=== PATIENT | male | born 1950 ===

== ENCOUNTER 2018-01-08 11:29 | Emergency (ER) | payer OTHER ==
[~2018-01-08] VITALS: Ht 172.7 cm; Wt 101.8 kg
[2018-01-08 11:56] VITALS: BP 178/75; PULSE 88; RESP 18; TEMP 97.8; O2SAT 93; O2SAT 95
[2018-01-08 12:11] LABS: AUTOMATED NEUTROPHIL # 5.1 TH/MM3 (1.8-7.7); BASOPHIL % 0.5 % (0.0-2.0); EOSINOPHIL # 0.3 TH/MM3 (0-0.4); EOSINOPHIL % 4.5 % (0.0-4.0); HEMATOCRIT 47.2 % (39.0-51.0); HEMOGLOBIN 16.5 GM/DL (13.0-17.0); LYMPH % 18.3 % (9.0-44.0); LYMPHOCYTE # 1.4 TH/MM3 (1.0-4.8); MEAN CELL VOLUME 101.7 FL (80.0-100.0); MEAN CORPUSCULAR HEMOGLOBIN 35.5 PG (27.0-34.0); MEAN CORPUSCULAR HGB CONC 34.9 % (32.0-36.0); MEAN PLATELET VOLUME 7.7 FL (7.0-11.0); MONO % 8.6 % (0.0-8.0); MONOCYTE # 0.6 TH/MM3 (0-0.9); NEUT % 68.1 % (16.0-70.0); PLATELET COUNT 172 TH/MM3 (150-450); RED BLOOD COUNT 4.64 MIL/MM3 (4.50-5.90); RED CELL DISTRIBUTION WIDTH 13.7 % (11.6-17.2); WHITE BLOOD COUNT 7.5 TH/MM3 (4.0-11.0)
[2018-01-08 12:15] VITALS: BP 133/67; PULSE 85; RESP 18; O2SAT 92
[2018-01-08 12:38] LABS: BICARBONATE 27.4 MEQ/L (21.0-32.0); CALCIUM 9.4 MG/DL (8.5-10.1); CREATININE 0.7 MG/DL (0.60-1.30)
[2018-01-08] MEDS: RESP: ALBUTEROL 2.5 MG/3 ML NEB (SCH) INH (12:52)
[2018-01-08] MEDS ORDERED: methylPREDNISolone SOD SUCC 125 MG/2 ML VIAL IV PUSH ONE (13:00)
--- NOTE | 2018-01-08 13:01 | RADRPT ---
EXAM DATE/TIME: 01/08/2018 12:38 [place] COMPARISON: No previous studies available for comparison. INDICATIONS : Shortness of breath. MEDICAL HISTORY : Chronic obstructive pulmonary disease. Emphysema. SURGICAL HISTORY : None. ENCOUNTER: Initial ACUITY: 1 day PAIN SCORE: 0/10 LOCATION: Bilateral chest FINDINGS: The lungs are hyperaerated. There is chronic appearing interstitial prominence. Mild blunting of the right costophrenic angle is noted. Heart and mediastinal structures are unremarkable. Osseous structures are intact. CONCLUSION: 1. COPD. 2. Small pleural effusion versus pleural scarring along the right lung base. 3. Chronic appearing interstitial lung disease without evidence of consolidating airspace disease. Abhinav Peña MD on January 08, 2018 at 12:57 Board Certified Radiologist. This report was verified electronically.
--- NOTE | 2018-01-08 15:03 | PD ---
HPI Chief Complaint: Respiratory Symptoms Time Seen by Provider: 12:09 Travel History International Travel<30 days: No Contact w/Intl Traveler<30days: No Traveled to known affect area: No History of Present Illness HPI This is a 67-year-old male who presents to the emergency department sent over from the [place] for hypoxia. He reports that he is felt short of breath for months. He smokes a pack of cigarettes per day. He has had some productive cough with yellow sputum. His symptoms have been constant, mild, and worse when he exerts himself. He is not on oxygen at home. He was transported from the [place] here for further evaluation. He was given bronchodilator treatments prior to arrival by EMS. PFSH Past Medical History COPD: Yes (EMPHYSEMA) Fibromyalgia: Yes Respiratory: Yes (COPD/EMPHYSEMA) Tetanus Vaccination: > 5 Years Influenza Vaccination: Yes Past Surgical History Surgical History: No Previous Surgery Social History Alcohol Use: No Tobacco Use: Yes (< 1 PPD) Substance Use: No Allergies-Medications (Allergen,Severity, Reaction): Coded Allergies: vardenafil (Verified Adverse Reaction, Severe, DYSPNEA, 01/08/18) amitriptyline (Verified Adverse Reaction, Intermediate, DIZZINESS, 01/08/18 ) baclofen (Verified Adverse Reaction, Intermediate, NAUSEA, 01/08/18) bupropion (Verified Adverse Reaction, Intermediate, TREMORS, 01/08/18) colestipol (Verified Adverse Reaction, Intermediate, CONSTIPATION, 01/08/18 ) duloxetine (Verified Adverse Reaction, Intermediate, HEADACHE, 01/08/18) ezetimibe (Verified Adverse Reaction, Intermediate, MUSCLE PAIN, 01/08/18) fluvastatin (Verified Adverse Reaction, Intermediate, MUSCLE PAIN, 01/08/18 ) mirtazapine (Verified Adverse Reaction, Intermediate, DIZZINESS, 01/08/18) morphine (Verified Adverse Reaction, Intermediate, NAUSEA, DIZZINESS, 01/08) oxycodone (Verified Adverse Reaction, Intermediate, DIZZINESS, VISUAL DISTURBANCES, 01/08/18) pregabalin (Verified Adverse Reaction, Intermediate, DISORIENTATION, ) rosuvastatin (Verified Adverse Reaction, Intermediate, MUSCLE PAIN, ) simvastatin (Verified Adverse Reaction, Intermediate, MUSCLE PAIN, 01/08/18 ) terazosin (Verified Adverse Reaction, Intermediate, DIZZINESS, 01/08/18) Review of Systems Except as stated in HPI: all other systems reviewed are Neg Physical Exam Narrative GENERAL:Well appearing, no acute distress SKIN: Focused skin assessment warm and dry. HEAD: Atraumatic. Normocephalic. EYES: Pupils equal and round. No injection or drainage. ENT: Moist mucous membranes NECK: Trachea midline. CARDIOVASCULAR: Regular rate and rhythm. No murmur appreciated. RESPIRATORY: Diffuse wheezing bilaterally GASTROINTESTINAL: Abdomen soft, non-tender, nondistended. MUSCULOSKELETAL: No obvious deformities. NEUROLOGICAL: Awake and alert. No obvious cranial nerve deficits. Moving all extremities. PSYCHIATRIC: Appropriate mood and affect; insight and judgment normal. Data Data Last Documented VS Vital Signs Date Time Temp Pulse Resp B/P (MAP) Pulse Ox O2 Delivery O2 Flow Rate FiO2 01/08/18 13:31 01/08/18 12:20 90 Room Air 01/08/18 12:15 85 18 01/08/18 11:56 97.8 2.00 Orders Orders Complete Blood Count With Diff (01/08/18 11:53) Basic Metabolic Panel (Bmp) (01/08/18 11:53) Chest, Pa & Lat (01/08/18 11:53) Iv Access Insert/Monitor (01/08/18 11:53) Ecg Monitoring (01/08/18 11:53) Oxygen Administration (01/08/18 11:53) Oximetry (01/08/18 11:53) Electrocardiogram (01/08/18 11:53) B-Type Natriuretic Peptide (01/08/18 12:16) Methylprednisolone So Succ Inj (Solumedr (01/08/18 13:00) Albuterol Neb (Albuterol Neb) (01/08/18 13:00) Electrocardiogram (01/08/18 12:16) Labs Laboratory Tests Test 01/08/18 11:58 White Blood Count 7.5 TH/MM3 Red Blood Count 4.64 MIL/MM3 Hemoglobin 16.5 GM/DL Hematocrit 47.2 % Mean Corpuscular Volume 101.7 FL Mean Corpuscular Hemoglobin 35.5 PG Mean Corpuscular Hemoglobin Concent 34.9 % Red Cell Distribution Width 13.7 % Platelet Count 172 TH/MM3 Mean Platelet Volume 7.7 FL Neutrophils (%) (Auto) 68.1 % Lymphocytes (%) (Auto) 18.3 % Monocytes (%) (Auto) 8.6 % Eosinophils (%) (Auto) 4.5 % Basophils (%) (Auto) 0.5 % Neutrophils # (Auto) 5.1 TH/MM3 Lymphocytes # (Auto) 1.4 TH/MM3 Monocytes # (Auto) 0.6 TH/MM3 Eosinophils # (Auto) 0.3 TH/MM3 Basophils # (Auto) 0.0 TH/MM3 CBC Comment DIFF FINAL Differential Comment Blood Urea Nitrogen 6 MG/DL Creatinine 0.70 MG/DL Random Glucose 145 MG/DL Calcium Level 9.4 MG/DL Sodium Level 139 MEQ/L Potassium Level 4.0 MEQ/L Chloride Level 102 MEQ/L Carbon Dioxide Level 27.4 MEQ/L Anion Gap 10 MEQ/L Estimat Glomerular Filtration Rate 112 ML/MIN MDM Medical Decision Making Medical Screen Exam Complete: Yes Emergency Medical Condition: Yes Interpretation(s) Afebrile, no tachycardia, hypoxia No leukocytosis Electrolytes are reassuring Last 24 hours Impressions Chest X-Ray 01/08/18 1153 Signed Impressions: Service Date/Time: Monday, January 08, 2018 12:38 - CONCLUSION: 1. COPD. 2. Small pleural effusion versus pleural scarring along the right lung base. 3. Chronic appearing interstitial lung disease without evidence of consolidating airspace disease. Abhinav Peña MD Differential Diagnosis COPD exacerbation, pleural effusion, pneumonia, pulmonary embolism, lung cancer Narrative Course This is a 67-year-old male who presents to the emergency department with hypoxia sent [facility]. On exam he has some wheezing. I suspect his hypoxia is in the setting of COPD. He was given serial bronchodilator treatments and steroids. Labs were obtained which were reassuring. Chest x-ray demonstrates no acute process. I had ordered a CT pulmonary angiogram due to the patient's persistent hypoxia despite bronchodilators. Patient left without talking to any of the staff. I think he was capable of making his own decisions. Katherin Garcia MD January 08, 2018 15:03
--- NOTE | 2018-01-10 12:11 | EKG ---
Date Performed: 01/08/2018 Time Performed: 12:16:38 PTAGE: 67 years EKG: Sinus rhythm WITH SHORT OR INTERVAL WITH OCCASIONAL SUPRAVENTRICULAR PREMATURE COMPLEXES ABNORMAL ECG NO PREVIOUS TRACING DOCTOR: Jerome Rios Interpretating Date/Time 01/10/2018 11:59:44
--- NOTE | 2018-01-10 12:12 | EKG ---
Date Performed: 01/08/2018 Time Performed: 11:50:17 PTAGE: 67 years EKG: Sinus rhythm LEFT ANTERIOR FASCICULAR BLOCK ABNORMAL ECG NO PREVIOUS TRACING DOCTOR: Jerome Rios Interpretating Date/Time 01/10/2018 12:00:13
== END 2018-01-08 13:31 | disposition left against medical advice (07) ==
LOC: NEPC 11:29
DX: J44.9 Chronic obstructive pulmonary disease, unspecified (principal); J84.9 Interstitial pulmonary disease, unspecified; I44.4 Left anterior fascicular block; Z53.20 Procedure and treatment not carried out because of patient's decision for unspecified reasons; M79.7 Fibromyalgia; F17.210 Nicotine dependence, cigarettes, uncomplicated; Z88.5 Allergy status to narcotic agent; Z88.8 Allergy status to other drugs, medicaments and biological substances
CPT/HCPCS: 71046; 80048; 83880; 85025; 93005; 94640; 94664; 99285; J7613